=== PATIENT | female | born 1995 | race Asian ===

== ENCOUNTER 2022-02-28 12:19 | Emergency (ER) | payer OTHER, SELFPAY ==
--- NOTE | ~2022-02-28 | XR_ITS ---
EXAMINATION: XR chest 1V portable 02/28/2022 15:17 INDICATION: Cough. Chest pain. PROCEDURE: AP portable chest COMPARISON: No prior studies for comparison. FINDINGS: The lungs are clear. The cardiomediastinal silhouette is within normal limits. There are no pleural effusions. There is no pneumothorax suspected. IMPRESSION: 1: NO ACUTE CARDIOPULMONARY DISEASE. Reviewed, dictated and finalized at location B.
[2022-02-28 13:07] VITALS: BP 142/86; PULSE 87; RESP 16; TEMP 36.6; O2SAT 99
[2022-02-28 13:39] LABS: Influenza A QL RT-PCR Negative (Negative); Influenza B QL RT-PCR Negative (Negative); SARS-CoV-2 RNA PCR Negative
--- NOTE | 2022-02-28 15:09 | ED.GENADULT ---
HPI - General Adult General Chief complaint: Fever Stated complaint: fever Time Seen by Provider: 02/28/22 14:51 History of Present Illness HPI narrative: Patient is a 27-year-old female here for evaluation of fevers, headache and nausea for the past 3 days. Patient states that her fever has reached up to 103 degrees. Additionally notes dizziness and diffuse headache, dizziness is there when she turns her head. She denies any neck pain or stiffness. Patient does state that she developed an itchy rash on her hands today that prompted her ED evaluation. Rash is not painful. She did start antibiotic yesterday that was given to her by a friend for his symptoms, patient is unsure the name of the antibiotic and has never had it before. No throat tightness or difficulty breathing. Denies foreign travel or sick contacts. Related Data Allergies Allergy/AdvReac Type Severity Reaction Status Date / Time No Known Allergies Allergy Verified 02/28/22 15:29 Review of Systems Review of Systems: Gen: Reports fevers. Eyes: Denies eye pain or visual change ENT: Denies congestion Respiratory: Denies shortness of breath or cough CV: Denies chest pain or palpitations GI: Denies abdominal pain nausea, emesis or diarrhea : denies burning, urgency, frequency or hematuria Musculoskeletal: Denies back pain or muscle pain Neuro: Reports headache and dizziness. Denies numbness, tingling, weakness or focal weakness Skin: Reports rash Except as documented, all other systems reviewed and negative Exam Narrative: APPEARANCE: Well appearing, no pain in distress, well-nourished. Head: Normocephalic and atraumatic. EYES: Extraocular movements provoke dizziness and patient although they are intact. PERRLA, conjunctivae clear NOSE: No nasal drainage EARS: External ear normal in appearance THROAT: Oropharynx is clear. Mucous membranes are moist. NECK: Supple. No adenopathy, no masses. RESPIRATORY: Airway patent, respirations nonlabored. Clear to auscultation bilaterally, no rales, rhonchi, wheezing. CARDIOVASCULAR: Regular rate and rhythm without murmurs, rubs, or gallops. ABDOMINAL: Normoactive bowel sounds. Soft, nontender, nondistended. No rebound tenderness or guarding. MUSCULOSKELETAL: Extremities are warm and well-perfused. Moves all extremities well. No edema. NEURO: Normal speech. No focal neurologic deficits. SKIN: Patient has an erythematous rash to the dorsal aspect of her right hand that has nontender to palpation and has negative Nikolsky sign. PSYCHIATRIC: Normal affect/mood. Course Vital Signs Vital signs: Vital Signs Temperature 97.9 F 02/28/22 13:07 Pulse Rate 87 02/28/22 13:07 Respiratory Rate 16 02/28/22 13:07 Blood Pressure 142/86 H 02/28/22 13:07 Pulse Oximetry 99 02/28/22 13:07 Temperature 97.9 F 02/28/22 13:07 Pulse Rate 82 02/28/22 17:04 Respiratory Rate 18 02/28/22 17:04 Blood Pressure 110/65 02/28/22 17:04 Pulse Oximetry 99 02/28/22 17:04 Medical Decision Making [facility] Narrative Medical decision making narrative: 27-year-old female here for evaluation of dizziness, fevers over the past 3 days. Patient is nontoxic-appearing on exam and has normal vital signs, her neurologic exam is unremarkable and she has no nuchal rigidity or signs of meningismus. Her work-up in the ED is significant for a slight elevation in her ESR, but normal CRP and almost normal white count at 10.6. Her flu and COVID test are negative. Her chest x-ray is clear. Patient was feeling entirely improved after fluids and meclizine in the ED. Unclear etiology, likely viral syndrome. Suspect the rash on her hand may be an allergic reaction to the antibiotic she took yesterday. Encouraged patient to stop taking this antibiotic, use Benadryl and Pepcid as needed. No respiratory symptoms to suggest anaphylaxis. She was given return precautions and she voiced understanding. Vital Signs Vital Signs: Vital Signs T
[2022-02-28] MEDS: SODIUM CHLORIDE 0.9% IV 1,000 ML 999 ML IV CONT (15:30)
[2022-02-28] MEDS: ACETAMINOPHEN 325 MG TABLET 650 MG PO (15:31)
[2022-02-28] MEDS: MECLIZINE HCL 25 MG TABLET PO (15:31)
[2022-02-28 15:37] VITALS: RESP 18; O2SAT 98
[2022-02-28 15:41] LABS: Basophils Absolute Auto 0.1 K/mm3 (0.0-0.1); Basophils Percent Auto 0.8 % (0.2-1.2); Eosinophils Absolute Auto 0.1 K/mm3 (0-0.3); Eosinophils Percent Auto 1.2 % (0-4.4); Hematocrit 38.2 % (37.0-47.0); Hemoglobin 11.5 g/dL (12.0-15.0); Immature Granulocyte Absolute 0.04 K/mm3 (0.00-0.031); Immature Granulocyte Percent A 0.4 % (0-0.5); Lymphocytes Absolute Auto 2.62 K/mm3 (0.9-3.2); Lymphocytes Percent Auto 24.7 % (18.3-44.2); Mean Corpuscular HGB Conc 30.1 g/dl (32-36); Mean Corpuscular Hemoglobin 24.5 pg (26-34); Mean Corpuscular Volume 81.4 fl (80-100); Mean Platelet Volume 8.8 fl (7.4-10.4); Monocytes Absolute Auto 0.7 K/mm3 (0.1-0.6); Monocytes Percent Auto 6.3 % (2.6-8.5); Neutrophils Absolute Auto 7.1 K/mm3 (1.3-6.7); Neutrophils Percent Auto 66.6 % (45.5-73.1); Platelet Count Result 488 k/mm3 (150-375); Red Blood Count 4.69 M/mm3 (4.2-5.4); Red Cell Distribution Width 15.5 % (11.5-14.5); White Blood Count 10.6 K/mm3 (4.5-10.0)
[2022-02-28 16:02] LABS: Alanine Aminotransferase 21 U/L (6-35); Albumin Level 4.7 g/dL (3.5-5.1); Alkaline Phosphatase 85 U/L (38-126); Anion Gap 13 mmol/L (8-16); Aspartate Amino Transferase 32 U/L (14-36); Bilirubin,Total 0.4 mg/dL (0.2-1.3); Blood Urea Nitrogen 11 mg/dL (7-17); Calcium 9.1 mg/dL (8.4-10.2); Carbon Dioxide 27 mmol/L (22-30); Chloride 98 mmol/L (98-107); Estimated CRCL calculation 75 ml/min; Estimated Glomerular Filt Rate > 60; Glucose 94 mg/dL (65-110); Sodium 138 mmol/L (137-145)
[2022-02-28 16:04] LABS: CRP < 0.5 mg/dL (<1.0)
[2022-02-28 16:06] LABS: Erythrocyte Sedimentation Rate 45 mm/hr (0-20)
[2022-02-28 17:04] VITALS: BP 110/65; PULSE 82; RESP 18; O2SAT 99
== END 2022-02-28 17:05 | disposition home or self-care (01) ==
PROVIDERS: Physician Assistant; Emergency Provider Emergency Medicine
DX: R42 Dizziness and giddiness (principal); T36.91XA Poisoning by unspecified systemic antibiotic, accidental (unintentional), initial encounter; L27.0 Generalized skin eruption due to drugs and medicaments taken internally; Z20.822 Contact with and (suspected) exposure to COVID-19
CPT/HCPCS: 36415; 71045; 80053; 85025; 85652; 86140; 87502; 96360; 99283; A9270; J7030; U0003; U0005

== ENCOUNTER 2022-03-02 13:46 | Emergency (ER) | payer OTHER, SELFPAY ==
--- NOTE | ~2022-03-02 | CT_ITS ---
EXAMINATION: CT BRAIN W/O DATE: 03/02/2022 16:02 INDICATION: Headache. TECHNIQUE: Computed tomography (CT) of the head was performed without intravenous contrast. The dose- length product was 529.67 mGy-cm. Automated exposure control and iterative reconstruction technique w ere employed. COMPARISON: No prior studies for comparison. FINDINGS: Normal brain parenchymal volume for age. Normal mills-white differentiation. No acute intrac ranial hemorrhage, infarction, mass or mass effect. No ventriculomegaly or midline shift. Midline sagittal images demonstrate a normal corpus callosum, c raniovertebral junction and sella turcica. Basilar cisterns are patent. Paranasal sinuses and mastoids are pneumatized. No depressed skull fractures. IMPRESSION: 1. No acute intracranial abnormality. Reviewed, dictated and finalized at location B.
[2022-03-02 14:12] VITALS: BP 125/61; PULSE 93; RESP 16; TEMP 37.1; O2SAT 100
--- NOTE | 2022-03-02 15:51 | ED.GENADULT ---
HPI - General Adult General Chief complaint: Fever Stated complaint: fever, neck pain Time Seen by Provider: 03/02/22 15:30 History of Present Illness HPI narrative: 27-year-old female presented to the emergency department for evaluation of intermittent fever and headache. Patient states she was evaluated on the and had been having low-grade fever at that time for approximately 3 days. Patient had a negative work-up at that time and states that her symptoms have persisted. Patient states that she has not measured a temperature higher than 98 degrees but feels that it does get higher at nighttime. Patient denies any associated chest pain or shortness of breath. Patient states she has had some nausea but denies any vomiting. Patient denies any abdominal pain or pain with urination. Related Data Allergies Allergy/AdvReac Type Severity Reaction Status Date / Time No Known Allergies Allergy Verified 03/02/22 14:15 Review of Systems Review of Systems: CONSTITUTIONAL: See HPI EYES: Denies visual changes, redness, or discharge. ENT: Denies rhinorrhea, congestion, sore throat, or otalgia. CARDIOVASCULAR: Denies chest pain, palpitations, or edema. RESPIRATORY: Denies cough or dyspnea. GASTROINTESTINAL: Denies abdominal pain, nausea, vomiting, or diarrhea. GENITOURINARY: Denies dysuria or hematuria. SKIN: Denies rash or itching. MUSCULOSKELETAL: Denies back pain, joint pain, or myalgia. NEUROLOGIC: Denies headache, numbness, or weakness. Exam Narrative: APPEARANCE: Well appearing, no pain, no distress, well-nourished. HEAD: normocephalic, atraumatic. EYES: PERRLA/EOMI, conjunctivae clear. NOSE: Normal no drainage EARS:TMS clear with good light reflex. THROAT: Pharynx clear, no exudate. NECK: Supple. No adenopathy, no masses. RESPIRATORY: Airway patent, respirations nonlabored. Clear to auscultation bilaterally, no rales, rhonchi, wheezing. CARDIOVASCULAR: Regular rate and rhythm without murmurs rubs or gallops. ABDOMINAL: Soft, nontender, nondistended, normal bowel sounds MUSCULOSKELETAL: Moves all extremities. Strength/ROM intact, No edema, No calf tenderness. No evidence of meningitis NEURO: Alert. Cranial nerves II through XII intact. Grossly intact SKIN: Warm, dry. Normal Color Course Course Emergency Course: Head CT was negative for acute intracranial normality. Patient was afebrile with a mild leukocytosis of 10.9. Patient was negative for influenza COVID and strep. Patient did feel improved with treatment. Patient family updated the results of the work-up. All question concerns were addressed. Vital Signs Vital signs: Vital Signs Temperature 98.7 F 03/02/22 14:12 Pulse Rate 93 03/02/22 14:12 Respiratory Rate 16 03/02/22 14:12 Blood Pressure 125/61 03/02/22 14:12 Pulse Oximetry 100 03/02/22 14:12 Temperature 98.7 F 03/02/22 14:12 Pulse Rate 103 H 03/02/22 18:13 Respiratory Rate 18 03/02/22 18:13 Blood Pressure 125/71 03/02/22 18:13 Pulse Oximetry 100 03/02/22 18:13 Medical Decision Making Vital Signs Vital Signs: Vital Signs Temperature 98.7 F 03/02/22 14:12 Pulse Rate 93 03/02/22 14:12 Respiratory Rate 16 03/02/22 14:12 Blood Pressure 125/61 03/02/22 14:12 Pulse Oximetry 100 03/02/22 14:12 Temperature 98.7 F 03/02/22 14:12 Pulse Rate 103 H 03/02/22 18:13 Respiratory Rate 18 03/02/22 18:13 Blood Pressure 125/71 03/02/22 18:13 Pulse Oximetry 100 03/02/22 18:13 Lab Data Lab results reviewed: Yes I reviewed the patient's lab results. Result diagrams: 03/02/22 16:13 03/02/22 16:13 Labs: Lab Results 03/02/22 03/02/22 03/02/22 Range/Units 16:13 16:13 16:13 WBC 10.9 H (4.5-10.0) K/mm3 RBC 4.41 (4.2-5.4) M/mm3 Hgb 10.9 L (12.0-15.0) g/dL Hct 36.1 L (37.0-47.0) % MCV 81.9 (80-100) fl MCH 24.7 L (26-34) pg MCHC 30.2 L (32-36) g/dl RDW 15.6 H (11.5-14
[2022-03-02] MEDS: SODIUM CHLORIDE 0.9% IV 1,000 ML 999 ML IV CONT (16:14)
[2022-03-02 16:23] LABS: Basophils Absolute Auto 0.1 K/mm3 (0.0-0.1); Basophils Percent Auto 0.5 % (0.2-1.2); Eosinophils Absolute Auto 0.2 K/mm3 (0-0.3); Eosinophils Percent Auto 1.4 % (0-4.4); Hematocrit 36.1 % (37.0-47.0); Hemoglobin 10.9 g/dL (12.0-15.0); Immature Granulocyte Absolute 0.03 K/mm3 (0.00-0.031); Immature Granulocyte Percent A 0.3 % (0-0.5); Lymphocytes Absolute Auto 2.32 K/mm3 (0.9-3.2); Lymphocytes Percent Auto 21.2 % (18.3-44.2); Mean Corpuscular HGB Conc 30.2 g/dl (32-36); Mean Corpuscular Hemoglobin 24.7 pg (26-34); Mean Corpuscular Volume 81.9 fl (80-100); Mean Platelet Volume 8.6 fl (7.4-10.4); Monocytes Absolute Auto 0.7 K/mm3 (0.1-0.6); Monocytes Percent Auto 6.4 % (2.6-8.5); Neutrophils Absolute Auto 7.7 K/mm3 (1.3-6.7); Neutrophils Percent Auto 70.2 % (45.5-73.1); Platelet Count Result 446 k/mm3 (150-375); Red Blood Count 4.41 M/mm3 (4.2-5.4); Red Cell Distribution Width 15.6 % (11.5-14.5); White Blood Count 10.9 K/mm3 (4.5-10.0)
[2022-03-02 16:32] LABS: Alanine Aminotransferase 18 U/L (6-35); Albumin Level 4.7 g/dL (3.5-5.1); Alkaline Phosphatase 78 U/L (38-126); Anion Gap 15 mmol/L (8-16); Aspartate Amino Transferase 25 U/L (14-36); Bilirubin,Total 0.2 mg/dL (0.2-1.3); Blood Urea Nitrogen 7 mg/dL (7-17); Calcium 9.2 mg/dL (8.4-10.2); Carbon Dioxide 27 mmol/L (22-30); Chloride 97 mmol/L (98-107); Estimated CRCL calculation 75 ml/min; Estimated Glomerular Filt Rate > 60; Glucose 101 mg/dL (65-110); Potassium 4.1 mmol/L (3.4-5.0); Sodium 139 mmol/L (137-145)
[2022-03-02 17:01] LABS: Influenza A QL RT-PCR Negative (Negative); Influenza B QL RT-PCR Negative (Negative); SARS-CoV-2 RNA PCR Negative
[2022-03-02 18:13] VITALS: BP 125/71; PULSE 103; RESP 18; O2SAT 100
== END 2022-03-02 18:14 | disposition home or self-care (01) ==
PROVIDERS: Emergency Provider Emergency Medicine
DX: R52 Pain, unspecified (principal); Z20.822 Contact with and (suspected) exposure to COVID-19
CPT/HCPCS: 36415; 70450; 80053; 85025; 87081; 87502; 87880; 96360; 99284; J7030; U0003; U0005

== ENCOUNTER 2023-04-07 09:42 | Outpatient (CLI) | payer OTHER, SELFPAY ==
[2023-04-07 13:19] LABS: Vitamin D 25 Hydroxy 27.6 ng/mL
== END 2023-04-07 09:43 | disposition home or self-care (01) ==
LOC: ANHGOSHLAB 09:46
DX: E55.9 Vitamin D deficiency, unspecified (principal)
CPT/HCPCS: 36415; 82306; 82607